=== PATIENT | male | born 1970 | race Caucasian/White ===

== ENCOUNTER 2024-07-14 06:10 | Observation (INO) ==
--- NOTE | 2024-06-23 14:48 | PAT Medication Instructions ---
Medication Instructions Date of Service June 23, 2024 Home Medications Medication Instructions Recorded furosemide 20 mg tablet 20 mg PO DAILY PRN edema #90 tabs 02/20/24 nitroglycerin 0.4 mg sublingual 0.4 mg sublingual UD PRN Chest 05/01/24 tablet Pain #10 tabs gabapentin 300 mg capsule 600 mg (2 x 300 mg) PO TID #180 05/25/24 caps omeprazole 40 mg capsule,delayed 40 mg PO BID #60 caps 05/25/24 release alprazolam 0.5 mg tablet 0.5 mg PO BID #60 tabs 06/01/24 amoxicillin 875 mg-potassium 1 tab PO BID 7 days #14 tabs 06/19/24 clavulanate 125 mg tablet quetiapine 50 mg tablet (Seroquel) 50 mg PO HS #30 tabs 06/19/24 rosuvastatin 20 mg tablet 20 mg PO QAM #90 tabs 06/19/24 linaclotide 72 mcg capsule 72 mcg PO DAILY #30 caps 06/23/24 (Linzess) Medication List: ipratropium 20 mcg-albuterol 100 mcg/actuation mist for inhalation (Combivent Respimat) 1 puff inhalation UD PRN sob furosemide 20 mg tablet 20 mg PO DAILY PRN edema cholecalciferol (vitamin D3) 250 mcg (10,000 unit) tablet 250 mcg PO DAILY baclofen 10 mg tablet 10 mg PO TID PRN Pain nitroglycerin 0.4 mg sublingual tablet 0.4 mg sublingual UD PRN Chest Pain aspirin 81 mg tablet 81 mg PO QAM gabapentin 300 mg capsule 600 mg (2 x 300 mg) PO TID omeprazole 40 mg capsule,delayed release 40 mg PO BID fluticasone propionate 50 mcg/actuation nasal spray,suspension (Allergy Relief (fluticasone)) 1 spray intranasal DAILY PRN sinus congestion buprenorphine 8 mg-naloxone 2 mg sublingual film (Suboxone) 0.5 film buccal TID chronic pain control promethazine 25 mg tablet 25 mg PO TID PRN Nausea And Vomiting amoxicillin 875 mg-potassium clavulanate 125 mg tablet 1 tab PO BID 7 days quetiapine 50 mg tablet (Seroquel) 50 mg PO HS rosuvastatin 20 mg tablet 20 mg PO QAM linaclotide 72 mcg capsule (Linzess) 72 mcg PO DAILY paroxetine HCl 30 mg tablet 30 mg PO QAM MEDICATION INSTRUCTIONS: Continue as directed ipratropium 20 mcg-albuterol 100 mcg/actuation mist for inhalation (Combivent Respimat) 1 puff inhalation UD PRN sob fluticasone propionate 50 mcg/actuation nasal spray,suspension (Allergy Relief (fluticasone)) 1 spray intranasal DAILY PRN sinus congestion nitroglycerin 0.4 mg sublingual tablet 0.4 mg sublingual UD PRN Chest Pain amoxicillin 875 mg-potassium clavulanate 125 mg tablet 1 tab PO BID 7 days ASK your prescriber and surgeon aspirin 81 mg tablet 81 mg PO QAM DO NOT take the morning of surgery linaclotide 72 mcg capsule (Linzess) 72 mcg PO DAILY furosemide 20 mg tablet 20 mg PO DAILY PRN edema cholecalciferol (vitamin D3) 250 mcg (10,000 unit) tablet 250 mcg PO DAILY Take morning of surgery With a small sip of water, OTHERWISE NOTHING TO EAT OR DRINK AFTER MIDNIGHT: gabapentin 300 mg capsule 600 mg (2 x 300 mg) PO TID omeprazole 40 mg capsule,delayed release 40 mg PO BID buprenorphine 8 mg-naloxone 2 mg sublingual film (Suboxone) 0.5 film buccal TID chronic pain control promethazine 25 mg tablet 25 mg PO TID PRN Nausea And Vomiting baclofen 10 mg tablet 10 mg PO TID PRN Pain rosuvastatin 20 mg tablet 20 mg PO QAM paroxetine HCl 30 mg tablet 30 mg PO QAM Take evening before surgery gabapentin 300 mg capsule 600 mg (2 x 300 mg) PO TID omeprazole 40 mg capsule,delayed release 40 mg PO BID buprenorphine 8 mg-naloxone 2 mg sublingual film (Suboxone) 0.5 film buccal TID chronic pain control promethazine 25 mg tablet 25 mg PO TID PRN Nausea And Vomiting baclofen 10 mg tablet 10 mg PO TID PRN Pain quetiapine 50 mg tablet (Seroquel) 50 mg PO HS Other Notes If you have any questions please call us at [phone] or [phone] or [phone] or [phone]
--- NOTE | 2024-06-26 11:08 | Anesthesiology Consultation ---
Date of Service June 26, 2024 Assessment & Plan (1) Encounter for pre-operative examination: - Check BSG DOS (Preop labs done 06/26/24 note elevated glucose at 154. No reported hx of diabetes/prediabetes. Will recheck BSG level DOS). - Infectious disease screening: Per assessment on 06/26/24- No known recent infectious disease contacts. URI symptoms s/p [facility] PCP evaluation and CXR 06/18/24 (unremarkable). s/p abx completion. Symptoms improving. Patient declined viral panel at PAT visit 06/26/24. Per PCP workload message 06/26/24, patient updated PCP of ongoing URI symptoms; PCP aware of upcoming surgery > Augmentin was prescribed/sent. DOS 07/14/24. Symptom onset > 11 days from surgery date. Patient advised to contact surgeon/PAT if not at baseline prior to surgery. Nothing further needed at this time. - Cardiology visit (05/01/24): "Prior complex stenting of the circumflex. LAD and RCA with mild disease. About 3 years since he underwent stenting. The "coronary calcification" reported on the CT scan most likely consistent with the stents. Patient has had complete revascularization. He is also had a stress echo which was negative for ischemia. This is therefore reassuring. I suspect the reason he did not tolerate the long-acting nitrate was that he became hypotensive. His baseline blood pressure without any blood pressure medications is normal. At this time, he will continue with tolerated guideline directed medical therapy which includes aspirin 81 mg daily and high intensity statin therapy. He cannot tolerate a beta-joyce or an ALCON inhibitor/ARB at this time . Finally, he tells me that the market research lead to put the stents in place discontinued his dual antiplatelet therapy after 1 year. Given the complexity of his stenting procedure I likely would have continued him for at least 2 years and possibly indefinitely. At the present time, I will not change his medical regimen.. Pre-operative cardiovascular exam, new EKG abnormalities c/w ischemia.. The patient's EKG and recent stress echo are reassuring. No ischemia identified. The CT scan mentioning metaplasia is not supported with echo, stress test, or EKG evidence of significant infarct. Therefore it is of unknown clinical value. The EGD and colonoscopy are considered low risk procedures. The patient's clinical status is low risk. He should therefore proceed with planned GI procedures without further testing. We do recommend he remain on the low-dose aspirin because of his prior complex stenting.. Abdominal ultrasound did not confirm abdominal aortic aneurysm despite the bruit that was noted. The evaluation by echo demonstrated mild aortic root dilatation at 3.9 cm. However, the aorta itself is not enlarged (ascending and descending thoracic). Therefor e, not concerning at this time for any significant aortic aneurysm. We we will continue to follow with echo plus or minus CT scan in the future.. Follow Up: 6 months" - S/P EGD/colonoscopy 06/12/24: MAC at [facility] - Patient concern/request: Patient anxious regarding upcoming surgery/anesthesia. Requesting preop anxiolytic prior to surgery if possible. Chart Review Chart Review: Acceptable Risk for Surgery (pending evaluation DOS) and Patient seen in Pre Admission Testing Teaching & Discussion Pre-Anesthesia Teaching/Discussion Notes: Instructed NPO after midnight before surgery,except medications with 15 cc of water. Medication instructions provided according to the PAT guidelines. History Surgery Operation Date: 07/14/24 07:30 Proposed Procedures p Revision / Replacement of Thoracic Spine Paddle / Replacement Battery Generator - Kingsley Radford MD Height/Weight Height: 5 ft 10 in Weight: 88.5 kg Allergies Allergy/AdvReac Type Severity Reaction Status Date / Time doxycycline Allergy Severe Throat Verified 06/26/24 09:15 loses up, itching Sulfa (Sulfonamide Allergy Severe Throat Verified 06/26/24 09:15 Antibiotics) loses up, itching amitriptyline AdvReac urinary Uncoded 06/26/24 09:15 retention Medications Home Medications Medication Instructions Recorded Confirmed Last Taken ipratropium 20 mcg-albuterol 100 1 puff inhalation UD PRN sob 01/16/24 06/26/24 Unknown mcg/actuation mist for inhalation (Combivent Respimat) furosemide 20 mg tablet 20 mg PO DAILY PRN edema #90 tabs 02/20/24 06/26/24 Unknown cholecalciferol (vitamin D3) 250 250 mcg PO DAILY 04/23/24 06/26/24 06/10/24 mcg (10,000 unit) tablet baclofen 10 mg tablet 10 mg PO TID PRN Pain 04/30/24 06/26/24 06/11/24 nitroglycerin 0.4 mg sublingual 0.4 mg sublingual UD PRN Chest 05/01/24 06/26/24 Unknown tablet Pain #10 tabs aspirin 81 mg tablet 81 mg PO QAM 05/25/24 06/26/24 06/11/24 08:00 gabapentin 300 mg capsule 600 mg (2 x 300 mg) PO TID #180 05/25/24 06/26/24 06/11/24 caps omeprazole 40 mg capsule,delayed 40 mg PO BID #60 caps 05/25/24 06/26/24 06/11/24 release fluticasone propionate 50 1 spray intranasal DAILY PRN sinus 06/01/24 06/26/24 Unknown mcg/actuation nasal congestion spray,suspension (Allergy Relief (fluticasone)) buprenorphine 8 mg-naloxone 2 mg 0.5 film buccal TID chronic pain 06/03/24 06/26/24 06/11/24 sublingual film (Suboxone) control promethazine 25 mg tablet 25 mg PO TID PRN Nausea And 06/03/24 06/26/24 06/11/24 02:00 Vomiting quetiapine 50 mg tablet (Seroquel) 50 mg PO HS #30 tabs 06/19/24 06/26/24 Unknown rosuvastatin 20 mg tablet 20 mg PO QAM #90 tabs 06/19/24 06/26/24 Unknown linaclotide 72 mcg capsule 72 mcg PO DAILY #30 caps 06/23/24 06/26/24 Unknown (Linzess) paroxetine HCl 30 mg tablet 30 mg PO QAM 06/23/24 06/26/24 Unknown alprazolam 0.5 mg tablet 0.5 mg PO BID PRN Anxiety 06/26/24 06/23/24 Unknown amoxicillin 875 mg-potassium 1 tab PO BID 10 days #20 tabs 06/26/24 Unknown clavulanate 125 mg tablet Past Medical History Medical History Abdominal aortic aneurysm Hx reported per patient CTS 04/08/24 notes "No AAA" Anxiety and depression Aortic root enlargement DSE 11/2023: Mildly enlarged aortic root CAD (coronary artery disease) Stents x3 (2010) Cervical radiculopathy Chronic back pain Chronic nausea Chronic obstructive pulmonary disease Dysphagia Pills/food s/p EGD 06/12/24 Follows with [facility] Fibromyalgia GERD (gastroesophageal reflux disease) Hiatal hernia History of lymphoma (1983) Patient unsure of details Hx of gastritis Hx of myocardial infarction (02/2021) stents x3 Follows with [facility] cardio Hx of sleep apnea "resolved" with weight loss Hyperlipidemia IBS (irritable bowel syndrome) Peripheral neuropathy Pulmonary nodules monitoring Spinal cord stimulator status In place Non-functioning per patient Exercise / Class Metabolic Activity III < 4 Walking/Shop/Light housework Past Family History Family History Father Rheumatoid arthritis Gout Myocardial infarction FHx: prostate cancer Grandmother Osteoarthritis Mother FHx: lung cancer Past Surgical History Surgical History History of anesthesia reaction Awareness during a procedure "where I got shots in my back" and was told he would be "out during the procedure" History of appendectomy ~1996 History of brain surgery "a blood vessel broke open and they had to do surgery to stop the bleed" - unsure of year (~1996) History of cardiac cath (02/2021) 3 stents History of cholecystectomy ~1996 History of colonoscopy (06/12/24) History of esophagogastroduodenoscopy (EGD) (06/12/24) EGD/colonoscopy 06/12/24: MAC at [facility] History of open reduction and internal fixation (ORIF) procedure ankle History of surgery on lower extremity left leg x4 (reconstructive repairs) History of surgical removal of skin lesion "birthmark" lesion was removed as a child > found to be a large mass and was attached to the spinal cord. removed. no further issues S/P hernia repair with mesh insertion S/P insertion of spinal cord stimulator ~2004 battery change ~2014 Aware to bring remote DOS S/P laparotomy removal of hernia mesh and repair of "gangrene" (~1996) Past Anesthesia History No Family Hx of Anesthesia Complications and Other (Awareness during a procedure "where I got shots in my back" and was told he would be "out during the procedure") History of PONV No Hx of PONV and No Hx of Motion Sickness Social History Smoking Status: Current every day smoker Smoking cigarettes per day: 20+ cigs/day, vapes daily Do You Dip or Chew Tobacco: No Hx Alcohol Use: No Hx Substance Use: No substance use type: does not use Review of Systems Current URI symptoms improving (cough, fatigue). Previous intermittent fevers have resolved. Recurrent chest pain syndrome- following with [facility] cardio, controlled with nitro PRN per patient. Denies current/recent chest pain. Denies palpitations. Physical Exam Vital Signs BP 103/64 P 61 TEMP 98.3 SP02 97%RA RESP 16 Physical Full cervical extension range of motion. Full TMJ range of motion. TMD 3 finger breaths Mallampati Score I Dentition: upper/lower full dentures Lungs: clear throughout to auscultation Cardiac: regular rate and rhythm, no murmurs noted Spine: normal Carotid arteries: negative bruit Extremities: no LE edema Lab Results Anesthesia Preop Results Results Anesthesia Widget: WBC 19.57 K/ul (4.8-10.8) H 06/26/24 Hgb 12.3 g/dl (14.0-18.0) L 06/26/24 Hct 38.7 % (42.0-52.0) L 06/26/24 Plt 262 K/uL (130-400) 06/26/24 Na 139 mmol/L (136-145) 06/26/24 K 4.2 mmol/L (3.5-5.1) 06/26/24 Cl 103 mmol/L (98-107) 06/26/24 CO2 31 mmol/L (21-32) 06/26/24 BUN 10 mg/dl (6-23) 06/26/24 Creat 0.73 mg/dl (0.6-1.4) 06/26/24 Glucose Level 154 mg/dl (70-99(Fasting)) H 06/26/24 PT 9.8 Seconds (9.0-12.0) 06/26/24 PTT 27 Seconds (21-31) 06/26/24 INR 0.9 (0.9-1.1) 06/26/24 Blood Type O Positive 06/26/24 Antibody Screen NEGATIVE 06/26/24 Testing Laboratory Results Elevated WBC in setting of acute URI/illness- labs forwarded to surgeon/PCP. PCP rx'd Augmentin 06/26/24. Electrocardiogram Date: 04/20/25 SB at 47bpm. LAE. Chest X-Ray Date: 06/18/24 Findings: + NAD Stress Test Date: 08/27/24 Type: DSE Stress echo was negative for inducible ischemia. 85% MPHR. Rest echo: LVEF 60-64%. No LV wall motion abnormalities. Aortic root is mildly enlarged. No significant valvular disease. Cardiac Catheterization Date: 03/13/21 Severe single-vessel CAD with culprit lesion in the mid circumflex. Mild diffuse disease elsewhere. Culprit was a 90% stenosis of LC X s/p successful PCI. OM2 was stented with synergy. Proximal-mid LCx stented with Synergy RHIANNA.
[2024-07-14] MEDS: LR 60ML/HR IV SCH (06:39)
[2024-07-14] MEDS: LACTATED RINGER'S 1,000 ML IV SCH (06:45)
[2024-07-14] MEDS: ACETAMINOPHEN 500 MG TAB PO SCH (06:50)
[2024-07-14] MEDS: GABAPENTIN 900 MG DOSE PO SCH (06:51)
[2024-07-14] MEDS ORDERED: MIDAZOLAM HCL 1 MG/ML 2ML VIAL ONE (06:55)
[2024-07-14] MEDS ORDERED: PROPOFOL IV EMULSION 10 MG/ML 20 ML VIAL IV ONE (06:55)
[2024-07-14] MEDS ORDERED: ROCURONIUM BROMIDE 10 MG/ML 5 ML VIAL IV ONE (06:55)
[2024-07-14] MEDS ORDERED: DEXAMETHASONE SOD INJ 4 MG/ML VIAL ONE (06:55)
[2024-07-14] MEDS ORDERED: ONDANSETRON INJ 2 MG/ML 2 ML VIAL ONE (06:55)
[2024-07-14] MEDS ORDERED: PHENYLEPHRINE HCL 10 MG/ML VIAL ONE (06:56)
[2024-07-14] MEDS ORDERED: fentaNYL citrate PF 100 MCG/2 ML VIAL ONE (06:56)
[2024-07-14] MEDS ORDERED: PROPOFOL IV EMULSION 10 MG/ML 100 ML VIAL IV ONE ×2 (06:56→09:25)
[2024-07-14] MEDS ORDERED: LIDOCAINE 2% 2 ML VIAL/AMP(20MG/ML) INFIL ONE (07:07)
--- NOTE | 2024-07-14 07:15 | History & Physical Bridge Note ---
Date of Service July 14, 2024 History & Physical Bridge Note I have examined the patient, reviewed the History & Physical and in the interval since the performance of the History & Physical I have noted the following changes of clinical significance: no changes noted
[2024-07-14] MEDS ORDERED: SUCCINYLCHOLINE CHLORIDE 20 MG/ML 10 ML VIAL IV ONE (07:18)
[2024-07-14] MEDS: ceFAZolin 2000MG 2,000 MG/15 ML SYR IV SCH (08:05)
[2024-07-14] MEDS ORDERED: KETAMINE HCL 10MG/ML SYR ONE (08:22)
[2024-07-14] MEDS ORDERED: HYDROmorphone INJ 2 MG/ML SYR/VIAL ONE (08:33)
[2024-07-14] MEDS ORDERED: fentaNYL citrate PF 100 MCG/2 ML VIAL IV PRN (10:19)
[2024-07-14] MEDS ORDERED: ePHEDrine sulfate 50 MG/ML AMP IV PRN (10:19)
[2024-07-14] MEDS ORDERED: ONDANSETRON INJ 2 MG/ML 2 ML VIAL IV PRN ×2 (10:19→11:36)
[2024-07-14] MEDS ORDERED: PROMETHAZINE HCL 6.25 MG in SODIUM CHLORIDE 0.9% 50 ML IV PRN (10:19)
[2024-07-14] MEDS ORDERED: ATROPINE SULFATE 0.1 MG/ML 10ML SYR IV PRN (10:19)
[2024-07-14] MEDS: VANCOMYCIN HCL 1000MG/20ML VIAL ONE (10:34)
[2024-07-14] MEDS ORDERED: SUGAMMADEX SODIUM 200 MG/2 ML VIAL IV ONE (10:38)
[2024-07-14] MEDS: BUPIVACAINE 0.5 % 5 MG/1 ML MPF 30ML VIAL ONE (10:41)
[2024-07-14] MEDS ORDERED: KETOROLAC 30 MG/ML VIAL ONE (10:41)
[2024-07-14] MEDS: FLOSEAL HEMOSTATIC MATRIX 5ML TOP ONE (10:55)
--- NOTE | 2024-07-14 11:35 | Post Operative Brief Note ---
PG Immediate Post Op with CF Date of Surgery July 14, 2024 Pre & Post Diagnosis Operation Date: 07/14/24 07:30 Pre-Op Diagnosis: Malfunction of spinal cord stimulator Post-Op Diagnosis: Malfunction of spinal cord stimulator I identified the patient and participated in the time-out.: Yes Procedure Operation Date: 07/14/24 07:30 Actual Procedures p Replacement of Thoracic Spine Paddle and Replacement of Battery Generator(Not Applicable) - Kingsley Radford MD Surgeon Kingsley Radford MD Coagulant Dipper none Estimated Blood Loss 30 Findings Consistent with Post-Op Diagnosis Specimens Specimen Description: No specimen per surgeon Drains Whitehead Catheter (Inserted prior to start of procedure by Marie Mcleod RN without difficulty. Yellow urine noted in drain. To be removed at end of procedure.)
[2024-07-14] MEDS ORDERED: oxyCODONE/ACETAMINOPHEN 5mg/325mg TAB PO PRN (11:36)
[2024-07-14] MEDS ORDERED: LORazepam 0.5 MG TAB PO PRN (11:36)
[2024-07-14] MEDS ORDERED: FAMOTIDINE 20 MG TAB PO PRN (11:36)
[2024-07-14] MEDS ORDERED: ACETAMINOPHEN 1,000 MG/100 ML VIAL IV PRN (11:36)
[2024-07-14] MEDS ORDERED: DO NOT ADMINISTER FLU VACCINE PRN (11:36)
[2024-07-14] MEDS ORDERED: LORazepam 2 MG/1 ML VIAL IV PRN (11:36)
[2024-07-14] MEDS ORDERED: MAGNESIUM HYDROXIDE SUSP 30 ML UDC PO PRN (11:36)
[2024-07-14] MEDS ORDERED: hydrOXYzine HCl 25 MG TAB PO PRN (11:36)
[2024-07-14] MEDS ORDERED: ONDANSETRON 4 MG OD TAB PO PRN (11:36)
[2024-07-14] MEDS ORDERED: SOD PHOSPHATE/SOD BIPHOSPHATE ENEMA 132 ML BTL PR PRN (11:36)
[2024-07-14] MEDS ORDERED: bisacodyL 10 MG SUPP PR PRN (11:36)
[2024-07-14] MEDS ORDERED: ALUMINUM/MAGNESIUM SUSP 30 ML UDC PO PRN (11:36)
[2024-07-14] MEDS ORDERED: HYDROmorphone INJ 0.5 MG/0.5 ML SYR IV PRN (11:36)
[2024-07-14] MEDS ORDERED: diphenhydrAMINE Capsule 25 MG CAP PO PRN (11:36)
[2024-07-14] MEDS ORDERED: PROMETHAZINE 12.5 MG/50.5 ML BAG IV PRN (11:36)
[2024-07-14] MEDS ORDERED: METOCLOPRAMIDE HCL INJ 5 MG/ML 2 ML VIAL IV PRN (11:36)
[2024-07-14] MEDS ORDERED: DO NOT ADMINISTER PNEUMOCOCCAL VACCINE PRN (11:36)
[2024-07-14] MEDS ORDERED: NALOXONE HCL 0.4 MG/1 ML VIAL/CARP IV PRN (11:36)
[2024-07-14] MEDS ORDERED: FUROSEMIDE 20 MG TAB PO PRN (11:42)
[2024-07-14] MEDS ORDERED: FLUTICASONE PROPIONATE NA SPR 16 GM BTL PRN (11:42)
[2024-07-14] MEDS ORDERED: BACLOFEN 10 MG TAB PO PRN (11:42)
[2024-07-14] MEDS ORDERED: PROMETHAZINE HCL 25 MG TAB PO PRN (11:42)
[2024-07-14] MEDS ORDERED: IPRATROPIUM BROMIDE/ALBUTEROL respimat INH INH PRN (11:42)
[2024-07-14] MEDS ORDERED: NITROGLYCERIN SL 0.4 MG/TAB TAB SL PRN (11:42)
[2024-07-14] MEDS ORDERED: ALPRAZolam 0.5 MG TABLET PO PRN (11:42)
[2024-07-14 12:21] VITALS: TEMP 97.9
[2024-07-14] MEDS ORDERED: Ipratropium HFA Inhaler (Combivent Respimat P&T Subs) INH PRN (13:11)
[2024-07-14] MEDS ORDERED: Albuterol HFA 8 GM Inhaler (Combivent Respimat P&T Subs) INH PRN (13:11)
[2024-07-14] MEDS: GABAPENTIN 300 MG CAP PO SCH (13:39)
[2024-07-14] MEDS: ACETAMINOPHEN 500 MG TAB PO PRN (13:39)
[2024-07-14] MEDS: BUPRENORPHINE/NALOXONE 8/2 MG TAB SL SCH (13:40)
[2024-07-14 14:51] VITALS: BP 146/84; PULSE 93; RESP 18; O2SAT 94
--- NOTE | 2024-07-14 15:38 | Anesthesiology Progress Note ---
Date of Service July 14, 2024 Anesthesia Post Procedure Vital Signs Vital Signs: Temp Pulse Pulse Resp BP Pulse Ox O2 Del Method 07/14/24 15:04 36.6 C 93 H 18 146/84 H 94 07/14/24 14:49 93 H 18 146/84 H 94 Room Air 07/14/24 13:47 84 16 146/82 H 95 Room Air 07/14/24 13:19 84 18 151/93 H 96 Nasal Cannula 07/14/24 12:45 36.6 C 77 16 151/88 H 92 Nasal Cannula 07/14/24 12:30 76 15 136/90 92 Nasal Cannula 07/14/24 12:20 36.6 C 81 14 143/88 H 92 Nasal Cannula 07/14/24 12:10 80 20 154/89 H 92 Nasal Cannula 07/14/24 12:00 80 15 154/102 H 94 Oxymask 07/14/24 11:50 82 15 166/96 H 95 Oxymask 07/14/24 11:40 86 16 163/98 H 96 Oxymask 07/14/24 11:30 36.0 C L 87 19 144/85 H 92 Oxymask 07/14/24 06:24 37 C 63 20 135/86 95 Room Air O2 Flow Rate 07/14/24 15:04 07/14/24 14:49 07/14/24 13:47 07/14/24 13:19 2.0 07/14/24 12:45 2 07/14/24 12:30 4 07/14/24 12:20 4 07/14/24 12:10 2 07/14/24 12:00 4 07/14/24 11:50 4 07/14/24 11:40 8 07/14/24 11:30 8 07/14/24 06:24 Pain Intensity Lower Back: Pain Intensity: 2 Upper Back: Pain Intensity: 1 Transfer of Care Handoff Completed per policy Notes Mental Status: alert / awake / arousable Patient Amnestic to Procedure: Yes Nausea / Vomiting: adequately controlled Pain: adequately controlled Airway Patency, RR, SpO2: stable & adequate BP & HR: stable & adequate Hydration State: stable & adequate Anesthetic Complications: no major complications apparent
[2024-07-14] MEDS ORDERED: KETOROLAC 30 MG/ML VIAL IV SCH (17:00)
[2024-07-14] MEDS ORDERED: ceFAZolin 2000MG 2,000 MG/15 ML SYR IV SCH (18:00)
[2024-07-14] MEDS ORDERED: QUEtiapine FUMARATE 25 MG TABLET PO SCH (21:00)
[2024-07-14] MEDS ORDERED: DOCUSATE SODIUM/SENNA 50/8.6MG TAB PO SCH (21:00)
[2024-07-15] MEDS ORDERED: POLYETHYLENE (MIRALAX) 17 GM PACK PO SCH (06:00)
[2024-07-15] MEDS ORDERED: ROSUVASTATIN CALCIUM 20 MG TAB PO SCH (09:00)
[2024-07-15] MEDS ORDERED: PARoxetine HCL 10 MG TAB PO SCH (09:00)
[2024-07-15] MEDS ORDERED: linaCLOtide 72 MCG CAPSULE PO SCH (09:00)
--- NOTE | 2024-07-16 08:25 | Discharge Summary ---
Date of Service July 16, 2024 Admission HPI (Per Admitting) Failed Spinal cord stimulator. Principal Diagnosis Same as "Discharge Diagnosis" noted below under Discharge Instructions. Discharge Data Consultations 07/14/24 11:36 Consult Hospitalist Routine Procedures Performed Operation Date: 07/14/24 07:30 Actual Procedures p Replacement of Thoracic Spine Paddle and Replacement of Battery Generator(Not Applicable) - Kingsley Radford MD Ordered Studies 07/14/24 FL fluoro for pain procedure Routine Hospital Course (1) Malfunction of spinal cord stimulator: Replacement of thoracic spinal cord stimulator paddle and battery generator. PG Care Time/CCT Total # of Minutes Spent Total Time Spent with Patient: Total time spent is greater than 50% in coordination of care (as documented) at patient's floor/unit and/or counseling patient: Discharge Plan Discharge Items Patient Disposition: Home - Self-Care Reason For Visit: Diffuse Pain, Chronic Back Pain, Malfunction Spina Discharge Diagnosis: spinal cord stimulator failure Condition on Discharge: Good Activity: As commented below Activity Comment: No bending, twisting, lifting until seen in office in two weeks. Lifting: No more than 10 pounds Bathing: May shower/bathe in 3 days Exercise/Sports: Wait until after follow-up appointment Weightbearing: Full weightbearing Non-emergency contact: Surgeon Call non-emergency contact if: your pain is worsening Follow-up/Referrals: Almaz Sheldon CRNP [Primary Care Provider] - Diet: Regular Addtl Attending Provider Instructions: Cefadroxil 500mg twice daily for 10 days, rx sent through ambulatory chart Pending Studies at Discharge: No Stand-Alone Forms: [facility] Smoking Cessation Medications and DC Order Prescriptions: Continued nitroglycerin 0.4 mg tablet, sublingual 0.4 mg sublingual UD PRN (Reason: Chest Pain) Qty: 10 0RF aspirin 81 mg tablet 81 mg PO QAM quetiapine [Seroquel] 50 mg tablet 50 mg PO HS Qty: 30 0RF omeprazole 40 mg capsule,delayed release(DR/EC) 40 mg PO BID Qty: 180 3RF gabapentin 300 mg capsule 600 mg PO TID Qty: 360 3RF Rx Instructions: Take 600mg by mouth in the morning, 600mg by mouth at noon, 600mg by mouth at bedtime- DOSE VERIFIED WITH PATIENT promethazine 25 mg tablet 25 mg PO TID PRN (Reason: Nausea And Vomiting) Qty: 90 1RF cefadroxil 500 mg capsule 500 mg PO BID Qty: 20 0RF cholecalciferol (vitamin D3) 250 mcg (10,000 unit) tablet 250 mcg PO DAILY fluticasone propionate [Allergy Relief (fluticasone)] 50 mcg/actuation spray,suspension 1 spray intranasal DAILY PRN (Reason: sinus congestion) Rx Instructions: administer into each nostril Linzess 72 mcg capsule 72 mcg PO DAILY Qty: 30 2RF Combivent Respimat 20-100 mcg/actuation mist 1 puff inhalation UD PRN (Reason: sob) furosemide 20 mg tablet 20 mg PO DAILY PRN (Reason: edema) Qty: 90 3RF baclofen 10 mg tablet 10 mg PO TID PRN (Reason: Pain) paroxetine HCl [Paxil] 30 mg tablet 30 mg PO QAM alprazolam [Xanax] 0.5 mg tablet 0.5 mg PO BID PRN (Reason: Anxiety) rosuvastatin [Crestor] 20 mg tablet 20 mg PO QAM buprenorphine-naloxone [Suboxone] 8-2 mg Film 0.5 film BUCCAL TID Rx Instructions: place 1 film on inside of (each) cheek Discharge Orders: Discharge Order (Routine); Ordered 07/14/24 Ordered By: Kingsley Radford Admission Data Admit Date/Time: 07/14/24 11:36 Attending Provider: Kingsley Radford Admit Provider: Kingsley Radford Primary Care Provider: Almaz Sheldon Other Providers: Jona Liz; Kenneth Geiger; Omkar Che; Blaise Mazariegos; [place] Natalie B.; Lesa Sanchez; Viri Mckoy; Ramila Giraldo; Toribio Espinoza; Toña Crowley; Sohail Moses; Kenneth Mcfadden; Balta Warren; Tad Robison; Caitie Cantu; Caitie Porras; Michell Taveras; Reyna Lagunas; Viry Hugo; Zoraida Sanchez; Jas Anderson; Freddy Harrell; Denise Brand; Viviana Carmen; Mima Linares; Roberto Villa; Leo Sanchez; Blaise Figueredo; Kristy Cornejo; Aubree Cox; Justina Padron; Faustino Zhang; Vamshi Valiente; Handy Menjivar; Jona Gomez; Noy Mark; Robin Romero; Cata Liu; Patricia Evans; Noa East; Whit Jean Other Interventions: Discharge Summary Assessment (RN) Last Done: 07/14/24 15:04
--- NOTE | 2024-07-16 16:24 | Operative Report ---
PG Post Operative Report Pre & Post Diagnosis Operation Date: 07/14/24 07:30 Pre-Op Diagnosis: Malfunction of spinal cord stimulator Post-Op Diagnosis: Malfunction of spinal cord stimulator I identified the patient and participated in the time-out.: Yes Procedure Operation Date: 07/14/24 07:30 Actual Procedures p Replacement of Thoracic Spine Paddle and Replacement of Battery Generator(Not Applicable) - Kingsley Radford MD Surgeon Kingsley Radford MD System Software Programmer none Estimated Blood Loss 30 Findings Consistent with Post-Op Diagnosis Specimens none Description of Procedure 1. Revision of spinal cord stimulator electrode paddle via laminectomy, T8, [employer] [id number]. ([id number]) 2. Revision of implanted spinal cord stimulator generator left buttock, [employer] Inceptiv. ([id number]) Patient was taken the operating room and placed on the Nir frame after adequate anesthesia. The thoracic and lumbar region underwent a preprepped, I marked for the areas where the prior incisions have been placed in the mid thoracic spine and also in the left buttock/flank region. Initial images were obtained via fluoroscopy, I then began the procedure with a midline incision carried out over the area of insertion in the T8 region noting that the paddle placed originally was inserted cephalad to caudally, reasons unknown. I dissected down through the subcutaneous tissues following the wires until I was able to then follow it to the superior laminar edge of T8, and at that point I used a high-speed bur to thin the lamina in this region and was then able to follow the wires into the canal after using some curettes and Kerrison punches to mobilize the edge of the paddle. With some additional work using a Kerrison punch and curettes I was able to then carefully mobilized this and remove it without any issues. Once removed, I obtained a new paddle array, as this was the same dimensions as the prior device, I then inserted this without any issues, it was then sutured in place with several 3-0 silk sutures with anchors in the region of the inferior edge of the spinous process superiorly and also in the soft tissues in the area of the supraspinous ligament. The paddle was then cut from the wires, I made a transverse incision over the area of the prior battery just superior, then dissected down was able to locate the superior aspect of the battery. I was able to mobilize this and remove it along with the remaining wires. The new battery generator was obtained, I used a wire passer and advanced this from the pocket up to the area of the thoracic dissection for the exchange of the paddles, and I was able to advance the wires through this into the pocket without issue. The new battery generator was obtained, the wires were then secured using the screwdriver. Vancomycin powder was then placed in the pocket, I placed a 3-0 silk suture securing the generator in place. Local anesthetic was injected in both areas, vancomycin powder was also placed and both areas were then closed. I used a combination of some 0 Vicryl sutures in the deeper layer in the thoracic incision followed by 2-0 Vicryl sutures and carla for the skin. Combination of 2-0 and 3-0 Vicryl sutures were used to close the operative location for the paddle generator followed by carla for the skin. Sterile dressings were applied, the patient tolerated procedure well was taken to recovery room in satisfactory condition. I attest to the content of the Intraoperative Record and any orders documented therein. Any exceptions are noted below.
== END 2024-07-14 15:59 | disposition home or self-care (01) ==
LOC: ASU 06:10 → 3E 06:10